=== PATIENT | female | born 1965 | race Caucasian/White ===

== ENCOUNTER → 2016-07-23 | Outpatient (CLI) | payer BC ==
[~2016-07-23] MED LIST: PRLSR20 PO
--- NOTE | 2016-07-23 15:49 | MAMMOGRAPHY REPORT ---
BILATERAL DIGITAL SCREENING MAMMOGRAM TOMOSYNTHESIS WITH CAD: 07/23/2016 CLINICAL HISTORY: Routine screening. Patient has no complaints. TECHNIQUE: Breast tomosynthesis in addition to standard 2D mammography was performed. Current study was also evaluated with a Computer Aided Detection (CAD) system. COMPARISON: Comparison is made to exams dated: 07/21/2015 mammogram, 04/20/2013 mammogram, 4 mammogram, 10/30/2012 ultrasound biopsy, 04/16/2012 mammogram, and 04/10/2011 mammogram - [facility]. BREAST COMPOSITION: The tissue of both breasts is heterogeneously dense, which may obscure small ma sses. FINDINGS: There are vascular calcifications within the lateral left breast. A stable ribbon-shaped metallic biopsy marker associated with a lobulated mass in the right upper outer posterior breast. Pathology results yielded a benign fibroadenoma. No new suspicious mass, architectural distortion o r cluster of microcalcifications is seen. IMPRESSION: ACR BI-RADS CATEGORY 1: NEGATIVE There is no mammographic evidence of malignancy. A 1 year screening mammogram is recommended. The p atient will receive written notification of the results. Approximately 10% of breast cancers are not detected with mammography. A negative mammographic repor t should not delay biopsy if a clinically suggestive mass is present. Magnolia Paul M.D. ay/:07/23/2016 15:31:46 Baggage Security Checker: Mallory OAKLEY(Briseyda)(Ilan), [facility] letter sent: Normal 1/2 BI-RADS Code: ACR BI-RADS Category 1: Negative
== END | disposition home or self-care (01) ==
LOC: C.MAMM 11:27
PROVIDERS: ATTEND Obstetrics & Gynecology
DX: Z12.31 Encounter for screening mammogram for malignant neoplasm of breast (principal)

== ENCOUNTER → 2016-12-25 | Outpatient (CLI) | payer BC ==
[2016-12-28 13:59] LABS: CHLAMYDIA TRACH RNA*** NOT DETECTED (NOT DETECTED); GC (NEIS GONORRHOEAE)RNA** NOT DETECTED (NOT DETECTED)
== END | disposition home or self-care (01) ==
LOC: C.LABSPEC 15:47
PROVIDERS: ATTEND Obstetrics & Gynecology
DX: N93.0 Postcoital and contact bleeding (principal)

== ENCOUNTER → 2016-12-25 | Outpatient (CLI) | payer BC | END | disposition home or self-care (01) | LOC: C.PAPS 09:17 | PROVIDERS: ATTEND Obstetrics & Gynecology | DX: Z01.419 Encounter for gynecological examination (general) (routine) without abnormal findings (principal) ==

== ENCOUNTER → 2017-03-11 | Outpatient (CLI) | payer BC | END | disposition home or self-care (01) | LOC: C.PATHSPEC 17:42 | PROVIDERS: ATTEND Obstetrics & Gynecology | DX: N93.9 Abnormal uterine and vaginal bleeding, unspecified (principal) ==

== ENCOUNTER → 2017-07-26 | Outpatient (CLI) | payer OTHER ==
[~2017-07-26] MED LIST changes: +BIOT1CAP8 PO; +CIPR-255 PO; +MULT-240 PO; +OMEG10007 PO; +OXYC-57 PO; +PROB1TAB16 PO; +RANI150T85 PO; +VITACAP26 PO
--- NOTE | 2017-07-26 14:37 | MAMMOGRAPHY REPORT ---
BILATERAL DIGITAL SCREENING MAMMOGRAM TOMOSYNTHESIS WITH CAD: 07/26/2017 CLINICAL HISTORY: Routine screening. TECHNIQUE: Breast tomosynthesis in addition to standard 2D mammography was performed. Current study was also evaluated with a Computer Aided Detection (CAD) system. COMPARISON: Comparison is made to exams dated: 07/23/2016 mammogram, 07/21/2015 mammogram, 07/20/2014 mammogram, 04/20/2013 mammogram, 04/16/2012 mammogram, and 04/10/2011 mammogram - [facility]. BREAST COMPOSITION: The tissue of both breasts is heterogeneously dense, which may obscure small mas ses. FINDINGS: No suspicious masses, calcifications, or areas of architectural distortion are noted in ei ther breast. There has been no significant interval change compared to prior exams. Benign-appearing 13 mm mass with an associated biopsy marker clip in the right upper outer quadrant is stable compare d to prior exams. Bilateral benign-appearing calcifications are also stable. IMPRESSION: ACR BI-RADS CATEGORY 2: BENIGN There is no mammographic evidence of malignancy. A 1 year screening mammogram is recommended. The pa tient will receive written notification of the results. Approximately 10% of breast cancers are not detected with mammography. A negative mammographic report should not delay biopsy if a clinically suggestive mass is present. Clarisa Kirk M.D. /:07/26/2017 07:40:44 Delivery Coordinator: Mallory OAKLEY(R)(M), [facility] letter sent: Normal 1/2 BI-RADS Code: ACR BI-RADS Category 2: Benign
== END | disposition home or self-care (01) ==
LOC: C.MAMM 07:12
PROVIDERS: ATTEND Student in an Organized Health Care Education/Training Program
DX: Z12.31 Encounter for screening mammogram for malignant neoplasm of breast (principal)

== ENCOUNTER → 2017-08-22 | Outpatient (CLI) | payer OTHER ==
[~2017-08-22] MED LIST changes: -BIOT1CAP8 PO; -CIPR-255 PO; -MULT-240 PO; -OMEG10007 PO; -OXYC-57 PO; -PROB1TAB16 PO; -RANI150T85 PO; -VITACAP26 PO
== END | disposition home or self-care (01) ==
LOC: C.LABSPEC 14:00
PROVIDERS: ATTEND Physician Assistant
DX: N76.0 Acute vaginitis (principal)

== ENCOUNTER 2017-12-10 01:15 | Observation (INO) | payer OTHER ==
[~2017-12-10] VITALS: Ht 167.6 cm; Wt 62.0 kg
[2017-12-10] MEDS ORDERED: MoRPHine SULFATE 2 MG/ML CARP IV STA (01:43)
[2017-12-10] MEDS ORDERED: ONDANSETRON INJ 2 MG/ML 2 ML VIAL IV STA (01:43)
[2017-12-10] MEDS ORDERED: SODIUM CHLORIDE 0.9% 1000ML 1,000 ML IV ONE (01:45)
[2017-12-10] MEDS ORDERED: GI COCKTAIL PO ONE (01:45)
[2017-12-10] MEDS ORDERED: PROB1TAB16 PO (01:47)
[2017-12-10] MEDS ORDERED: RANI150T85 PO (01:47)
[2017-12-10] MEDS ORDERED: OMEG10007 PO (01:48)
[2017-12-10] MEDS ORDERED: BIOT1CAP8 PO (01:49)
[2017-12-10] MEDS ORDERED: LIDOCAINE HCL 2% VISC SOLN 20 ML UDC ONE (01:49)
[2017-12-10] MEDS ORDERED: VITACAP26 PO (01:49)
[2017-12-10] MEDS ORDERED: ALUMINUM/MAGNESIUM SUSP 30 ML UDC ONE (01:49)
[2017-12-10] MEDS ORDERED: MoRPHine SULFATE 4 MG/ML 1 ML CARP\\VIAL ONE (01:49)
[2017-12-10] MEDS ORDERED: MULT-240 PO (01:50)
[2017-12-10 02:05] LABS: CALCIUM 9.6 mg/dl (8.5-10.1); POTASSIUM 3.9 mmol/L (3.5-5.1); TOTAL PROTEIN 8.2 gm/dl (6.4-8.2)
[2017-12-10 02:07] LABS: BASO % 1.1 %; BASO ABS # 0.09 K/uL (0-0.2); EOS % 5.7 %; EOS ABS # 0.47 K/uL (0-0.5); HEMATOCRIT 38.6 % (37-47); HEMOGLOBIN 13.3 g/dL (12.0-16.0); IG# 0.01 K/uL (0.00-0.02); LYMPH % 32.6 %; LYMPH ABS # 2.67 K/uL (1.2-3.4); MEAN CELL VOLUME 84.6 fL (80-100); MEAN CORPUSCULAR HEMOGLOBIN 29.2 pg (25-34); MEAN CORPUSCULAR HGB CONC 34.5 g/dl (32-36); MEAN PLATELET VOLUME 10.4 fL (7.4-10.4); MONO % 9.8 %; NEUT % 50.7 %; NEUT ABS # 4.16 K/uL (1.4-6.5); PLATELET COUNT 336 K/uL (130-400); RED CELL DISTRIBUTION WIDTH CV 12.9 % (11.5-14.5); RED CELL DISTRIBUTION WIDTH SD 39.8 fL (36.4-46.3)
--- NOTE | 2017-12-10 07:10 | DIAGNOSTIC IMAGING REPORT ---
ABDOMINAL ULTRASOUND, RIGHT UPPER QUADRANT HISTORY: Upper abdominal pain. COMPARISON: Abdominal series December 10, 2017 FINDINGS: Liver morphology is normal. There is no biliary ductal dilatation. The common bile duct measures 4 mm in caliber. No gallstones are identified. However, the gallbladder is mildly distended and there may be a small amount of sludge within the gallbladder. Note is made of mild gallbladder wall thickening with a small amount of pericholecystic fluid. Sonographic Jean-Baptiste sign could not be assessed for given pain medication administration. Note is made of mild right hydronephrosis. IMPRESSION: 1. Mildly distended gallbladder with possible small amount of gallbladder sludge. No gallstones. Mild gallbladder wall thickening with pericholecystic fluid. These findings raise the possibility of acute cholecystitis and a hepatobiliary scan could be obtained. 2. No biliary ductal dilatation. 3. Mild right hydronephrosis of uncertain etiology. Electronically signed by: Nikita Monge M.D. 12/10/2017 7:09 AM Dictated Date/Time: 12/10/2017 7:05 AM
--- NOTE | 2017-12-10 07:44 | DIAGNOSTIC IMAGING REPORT ---
PA CHEST RADIOGRAPH AND UPRIGHT AND SUPINE AP RADIOGRAPHS OF THE ABDOMEN CLINICAL HISTORY: Epigastric abdominal pain. COMPARISON STUDY: Chest radiograph March 01, 2006. FINDINGS: Lung volumes are normal. No pneumothorax or pleural effusion is noted. Lungs are clear. Cardiac size is normal. Mediastinal contours are unremarkable. There is no evidence for pulmonary edema. There are no free air. Bowel gas pattern is normal. A moderate amount stool is noted within the colon. IMPRESSION: 1. No free air or evidence of bowel obstruction. 2. No acute cardiopulmonary findings. Electronically signed by: Nikita Monge M.D. 12/10/2017 7:43 AM Dictated Date/Time: 12/10/2017 7:41 AM
[2017-12-10] MEDS ORDERED: CIPR-255 PO (08:33)
--- NOTE | 2017-12-10 08:40 | Surgery Consultation ---
Consultation Date of Consultation: December 10, 2017. Attending Physician: Past Medical/Surgical History Medical Problems: (1) Colic, biliary Status: Acute (2) Esophageal Reflux Status: Chronic (3) Fall Status: Acute (4) Head contusion Status: Acute (5) Lumbago Status: Chronic (6) Mild concussion Status: Acute (7) Neck pain Status: Acute (8) Work related injury Status: Acute Social History Smoking Status: Never Smoker Allergies Coded Allergies: Prednisone (Unverified Allergy, Intermediate, HEART RACING, 12/10/17) Naproxen (Verified Adverse Reaction, Unknown, loose stools, 12/10/17) Home Medications Scheduled Biotin (Biotin), Unknown Dose PO DAILY Ciprofloxacin Hcl (Cipro), 1 TAB PO BID Fish Oil (Marston-3), 1 CAP PO DAILY Multiple Vitamins W/ Minerals (Womens One Daily), 1 TAB PO DAILY Omeprazole (Prilosec), 20 MG PO DAILY Probiotic Product (Probiotic), 1 TAB PO DAILY Ranitidine (Zantac), 150 MG PO DAILY Vitamins C & E (Vitamin C), 1 CAP PO DAILY Physical Exam Date Time Temp Pulse Resp B/P (MAP) Pulse Ox O2 Delivery O2 Flow Rate FiO2 12/10/17 08:28 70 20 133/85 97 12/10/17 06:00 70 18 113/54 97 Room Air 12/10/17 04:11 36.5 75 18 118/69 100 Room Air 12/10/17 02:51 70 18 133/77 100 Room Air 12/10/17 01:19 36.7 72 18 136/85 100 Room Air Laboratory Results Last 24 Hours Test 12/10/17 01:34 12/10/17 01:35 White Blood Count 8.20 K/uL Red Blood Count 4.56 M/uL Hemoglobin 13.3 g/dL Hematocrit 38.6 % Mean Corpuscular Volume 84.6 fL Mean Corpuscular Hemoglobin 29.2 pg Mean Corpuscular Hemoglobin Concent 34.5 g/dl Platelet Count 336 K/uL Mean Platelet Volume 10.4 fL Neutrophils (%) (Auto) 50.7 % Lymphocytes (%) (Auto) 32.6 % Monocytes (%) (Auto) 9.8 % Eosinophils (%) (Auto) 5.7 % Basophils (%) (Auto) 1.1 % Neutrophils # (Auto) 4.16 K/uL Lymphocytes # (Auto) 2.67 K/uL Monocytes # (Auto) 0.80 K/uL Eosinophils # (Auto) 0.47 K/uL Basophils # (Auto) 0.09 K/uL RDW Standard Deviation 39.8 fL RDW Coefficient of Variation 12.9 % Immature Granulocyte % (Auto) 0.1 % Immature Granulocyte # (Auto) 0.01 K/uL Sodium Level 139 mmol/L Potassium Level 3.9 mmol/L Chloride Level 104 mmol/L Carbon Dioxide Level 29 mmol/L Anion Gap 6.0 mmol/L Blood Urea Nitrogen 12 mg/dl Creatinine 1.00 mg/dl Est Creatinine Clear Calc Drug Dose 63.0 ml/min Estimated GFR () 76.1 Estimated GFR (Non- 65.6 BUN/Creatinine Ratio 11.7 Random Glucose 89 mg/dl Calcium Level 9.6 mg/dl Total Bilirubin 0.6 mg/dl Aspartate Amino Transf (AST/SGOT) 16 U/L Alanine Aminotransferase (ALT/SGPT) 33 U/L Alkaline Phosphatase 65 U/L Total Protein 8.2 gm/dl Albumin 4.0 gm/dl Globulin 4.2 gm/dl Albumin/Globulin Ratio 1.0 Lipase 157 U/L Urine Color YELLOW Urine Appearance CLEAR Urine pH 5.0 Urine Specific Delano 1.017 Urine Protein NEG Urine Glucose (UA) NEG Urine Ketones TRACE Urine Occult Blood NEG Urine Nitrite NEG Urine Bilirubin NEG Urine Urobilinogen NEG Urine Leukocyte Esterase LARGE Urine WBC (Auto) 10-30 /hpf Urine RBC (Auto) 0-4 /hpf Urine Hyaline Casts (Auto) 1-5 /lpf Urine Epithelial Cells (Auto) 10-20 /lpf Urine Bacteria (Auto) 1+
[2017-12-10] MEDS ORDERED: MoRPHine SULFATE 4 MG/ML 1 ML CARP\\VIAL IV PRN ×3 (10:30)
[2017-12-10] MEDS ORDERED: ONDANSETRON INJ 2 MG/ML 2 ML VIAL IV PRN ×2 (10:30→15:30)
[2017-12-10] MEDS ORDERED: CIPROFLOXACIN / D5W 400 MG in PREMIXED IN D5W 200 ML IV SCH (10:30)
[2017-12-10] MEDS ORDERED: LORAZEPAM 2 MG/ML 1 ML VIAL IV PRN (10:30)
--- NOTE | 2017-12-10 10:34 | History and Physical ---
History & Physical Date & Time of Service: December 10, 2017 at 10:24 Chief Complaint: Pain In Stomach And On Left Side Primary Care Physician: Heidy Heck D.O. History of Present Illness Source: patient Clover is a 51-year-old female who presented to the emergency room with complaint of epigastric abdominal pain with radiation to the left upper quadrant started yesterday around 7:30 PM. And states she has had multiple similar episodes every few months in the past 2 years. She had an upper endoscopy about a year ago with biopsy which showed no findings. She does take a daily PPI. Describes pain as a sharp stabbing pain with radiation to the left upper quadrant which is more dull in nature. Denies of any preceding incidents that caused the pain including fatty greasy meals. Has limited sugar in her diet. Mostly eats fruits and vegetables and meats. Denies of any fevers , chills, nausea, vomiting, vomiting blood, chest pain, shortness of breath, difficulty breathing, changes in bowel habits, diarrhea, constipation, blood in stools, black tarry stools, difficulty urinating, dysuria, blood in the urine. Emergency room workup included labs which show no leukocytosis, LFTs completely within normal limits including total bilirubin. Right upper quadrant ultrasound showed mildly distended gallbladder with possible amount of gallbladder sludge no gallstones. Mild gallbladder wall thickening with pericholecystic fluid. These findings raise possibility of acute cholecystitis. She has received some IV make pain medication in the emergency room. On my examination she is feeling better. No nausea no vomiting. Pain on presentation was 8 out of 10 and currently about a 1 out of 10. She denies of any pain during the ultrasound examination. Past Medical/Surgical History Medical Problems: (1) Acute acalculous cholecystitis (2) Biliary colic (3) Epigastric abdominal pain (4) Esophageal Reflux (5) Fall (6) Head contusion (7) Lumbago (8) Mild concussion (9) Neck pain (10) Work related injury Surgical Problems: (1) History of discectomy Social History Smoking Status: Never Smoker Immunizations History of Influenza Vaccine: No Influenza Vaccine Date: Apr 26, 2005 History of Pneumococcal: No History of Hepatitis B Vaccine: No Allergies Coded Allergies: Prednisone (Unverified Allergy, Intermediate, HEART RACING, 12/10/17) Naproxen (Verified Adverse Reaction, Unknown, loose stools, 12/10/17) Home Medications Scheduled Biotin (Biotin), Unknown Dose PO DAILY Ciprofloxacin Hcl (Cipro), 1 TAB PO BID Fish Oil (Karthaus-3), 1 CAP PO DAILY Multiple Vitamins W/ Minerals (Womens One Daily), 1 TAB PO DAILY Omeprazole (Prilosec), 20 MG PO DAILY Probiotic Product (Probiotic), 1 TAB PO DAILY Ranitidine (Zantac), 150 MG PO DAILY Vitamins C & E (Vitamin C), 1 CAP PO DAILY Review of Systems Constitutional: No fever, No chills, No sweats Respiratory: No cough, No shortness of breath, No dyspnea at rest Cardiovascular: No chest pain Abdomen: + pain, No nausea, No vomiting, No diarrhea, No constipation, No GI bleeding Genitourinary - Female: No dysuria, No urinary frequency, No urinary urgency, No urinary incontinence, No hematuria Endocrine: No fatigue Hematologic / Lymphatic: No abnormal bleeding/bruising Integumentary: No rash Physical Exam Vital Signs Date Time Temp Pulse Resp B/P (MAP) Pulse Ox O2 Delivery O2 Flow Rate FiO2 12/10/17 08:28 70 20 133/85 97 12/10/17 06:00 70 18 113/54 97 Room Air 12/10/17 04:11 36.5 75 18 118/69 100 Room Air 12/10/17 02:51 70 18 133/77 100 Room Air 12/10/17 01:19 36.7 72 18 136/85 100 Room Air General Appearance: WD/WN, no apparent distress Head: normocephalic, atraumatic Eyes: sclerae normal ENT: hearing grossly normal Neck: trachea midline Respiratory/Chest: normal breath sounds, no respiratory distress, no accessory muscle use Cardiovascular: regular rate, rhythm, no murmur Abdomen/GI: soft, no organomegaly, no pulsatile mass, + tenderness (mild in the epigastric region, negative Jean-Baptiste's sign) Back: normal inspection Extremities/Musculoskelatal: normal inspection Neurologic/Psych: alert, normal mood/affect, oriented x 3 Skin: normal color, warm/dry, no rash Diagnostics Laboratory Results Results Past 24 Hours Test 12/10/17 01:34 12/10/17 01:35 Range/Units White Blood Count 8.20 4.8-10.8 K/uL Red Blood Count 4.56 4.2-5.4 M/uL Hemoglobin 13.3 12.0-16.0 g/dL Hematocrit 38.6 37-47 % Mean Corpuscular Volume 84.6 80-100 fL Mean Corpuscular Hemoglobin 29.2 25-34 pg Mean Corpuscular Hemoglobin Concent 34.5 32-36 g/dl Platelet Count 336 130-400 K/uL Mean Platelet Volume 10.4 7.4-10.4 fL Neutrophils (%) (Auto) 50.7 % Lymphocytes (%) (Auto) 32.6 % Monocytes (%) (Auto) 9.8 % Eosinophils (%) (Auto) 5.7 % Basophils (%) (Auto) 1.1 % Neutrophils # (Auto) 4.16 1.4-6.5 K/uL Lymphocytes # (Auto) 2.67 1.2-3.4 K/uL Monocytes # (Auto) 0.80 0.11-0.59 K/uL Eosinophils # (Auto) 0.47 0-0.5 K/uL Basophils # (Auto) 0.09 0-0.2 K/uL RDW Standard Deviation 39.8 36.4-46.3 fL RDW Coefficient of Variation 12.9 11.5-14.5 % Immature Granulocyte % (Auto) 0.1 % Immature Granulocyte # (Auto) 0.01 0.00-0.02 K/uL Sodium Level 139 136-145 mmol/L Potassium Level 3.9 3.5-5.1 mmol/L Chloride Level 104 98-107 mmol/L Carbon Dioxide Level 29 21-32 mmol/L Anion Gap 6.0 3-11 mmol/L Blood Urea Nitrogen 12 7-18 mg/dl Creatinine 1.00 0.60-1.20 mg/dl Est Creatinine Clear Calc Drug Dose 63.0 ml/min Estimated GFR () 76.1 Estimated GFR (Non- 65.6 BUN/Creatinine Ratio 11.7 10-20 Random Glucose 89 70-99 mg/dl Calcium Level 9.6 8.5-10.1 mg/dl Total Bilirubin 0.6 0.2-1 mg/dl Aspartate Amino Transf (AST/SGOT) 16 15-37 U/L Alanine Aminotransferase (ALT/SGPT) 33 12-78 U/L Alkaline Phosphatase 65 45-117 U/L Total Protein 8.2 6.4-8.2 gm/dl Albumin 4.0 3.4-5.0 gm/dl Globulin 4.2 2.5-4.0 gm/dl Albumin/Globulin Ratio 1.0 0.9-2 Lipase 157 73-393 U/L Urine Color YELLOW Urine Appearance CLEAR CLEAR Urine pH 5.0 4.5-7.5 Urine Specific Watkins 1.017 1.000-1.030 Urine Protein NEG NEG Urine Glucose (UA) NEG NEG Urine Ketones TRACE NEG Urine Occult Blood NEG NEG Urine Nitrite NEG NEG Urine Bilirubin NEG NEG Urine Urobilinogen NEG NEG Urine Leukocyte Esterase LARGE NEG Urine WBC (Auto) 10-30 0-5 /hpf Urine RBC (Auto) 0-4 0-4 /hpf Urine Hyaline Casts (Auto) 1-5 0-5 /lpf Urine Epithelial Cells (Auto) 10-20 0-5 /lpf Urine Bacteria (Auto) 1+ NEG Microbiology Results 12/10/17 Urine Culture, Received Pending Diagnostic Radiology ABDOMINAL ULTRASOUND, RIGHT UPPER QUADRANT HISTORY: Upper abdominal pain. COMPARISON: Abdominal series December 10, 2017 FINDINGS: Liver morphology is normal. There is no biliary ductal dilatation. The common bile duct measures 4 mm in caliber. No gallstones are identified. However, the gallbladder is mildly distended and there may be a small amount of sludge within the gallbladder. Note is made of mild gallbladder wall thickening with a small amount of pericholecystic fluid. Sonographic Jean-Baptiste sign could not be assessed for given pain medication administration. Note is made of mild right hydronephrosis. IMPRESSION: 1. Mildly distended gallbladder with possible small amount of gallbladder sludge. No gallstones. Mild gallbladder wall thickening with pericholecystic fluid. These findings raise the possibility of acute cholecystitis and a hepatobiliary scan could be obtained. 2. No biliary ductal dilatation. 3. Mild right hydronephrosis of uncertain etiology. Impression Assessment and Plan 51-year-old female presented to the emergency room with complaint of epigastric abdominal pain with radiation to the left upper quadrant. This in the setting of chronic similar abdominal pain that occurs every few months in the past 2 years. Negative upper endoscopy about 1 year ago. Ultrasound of the gallbladder showing distention with gallbladder sludge no stones wall thickening and pericholecystic fluid concerning for acute cholecystitis. Labs within normal limits and vital signs stable. Abdomen is soft mildly tender in the epigastric region no distention. Dx: Acute cholecystitis with biliary colic Plan: Plan to admit patient for observation and for laparoscopic cholecystectomy later today. Start patient on IV fluids, IV Cipro twice daily, IV pain medication as needed, IV Zofran as needed, and IV Ativan low dose as needed for anxiety, and SCDs for DVT prophylaxis. Patient was informed of the procedure and risks including bleeding, infection, injury to common bile duct, bile leak, injury to surrounding organs and tissues, cardiopulmonary complications, including blood clots. Patient understood and informed consent will be obtained by Dr. Horvath prior to procedure. Dr. Horvath has seen patient, agrees with above. Resuscitation Status VTE Prophylaxis Will order VTE Prophylaxis: Yes
[2017-12-10] MEDS ORDERED: IV FLUIDS COMPLETED PRN (11:30)
--- NOTE | 2017-12-10 11:57 | EMERGENCY ROOM VISIT NOTE ---
ED Visit Note Emergency Department Note Ms. Cadena'arlene care was transferred to [facility] by Vinayak Cardona PA-C at the end of the shift pending surgical evaluation and possible hepatobiliary scan. Please see Mr. Cardona's documentation for full information on her emergency department visit prior to my taking over care. In summary patient has been having ongoing right upper abdominal pain for the last few months. She has seen a political aide and her symptoms were consistent with GERD and she was started on proton pump inhibitor dose. She came to emergency department with worsening epigastric pain and left upper quadrant pain this morning. Her CBC and BMP were unremarkable. Her lipase was unremarkable. Her urinalysis was questionable with a lot of epithelial cells but she did have 1+ bacteria and white blood cells. Culture is pending. Acute abdominal series was performed and was unremarkable. A gallbladder ultrasound was performed and showed a mildly distended gallbladder with a small amount of sludge but no gallstones. Mild gallbladder wall thickening with pericholecystic fluid raising the possibility of acute cholecystitis and a hepatobiliary exam was recommended. Additionally general surgery was consulted for patient evaluation. When care was transferred to [facility] the scan and surgical consultation was pending. Review of Systems: As noted above in history of present illness. All body systems were reviewed and found to be negative as noted above. Past Medical History: As previously noted (1) Acute acalculous cholecystitis (2) Biliary colic (3) Epigastric abdominal pain (4) Esophageal Reflux (5) Lumbago Surgical Problems: (1) History of discectomy Current Medications: Medications Dose Route/Sig Max Daily Dose Days Date Category Womens One Daily (Multiple Vitamins W/ Minerals) 1 Tab Tab 1 Tab PO DAILY 12/10/17 Reported Vitamin C (Vitamins C & E) 1 Cap Cap 1 Cap PO DAILY 12/10/17 Reported Biotin Unknown Strength Cap Unknown Dose PO DAILY 12/10/17 Reported [place]-3 (Fish Oil) 1 Ea Cap 1 Cap PO DAILY 12/10/17 Reported Zantac (Ranitidine HCl) 150 Mg Tab 150 Mg PO DAILY 12/10/17 Reported Probiotic (Probiotic Product) 1 Tab Tab 1 Tab PO DAILY 12/10/17 Reported Prilosec (Omeprazole) 20 Mg Capcr 20 Mg PO DAILY 12/14/15 Reported Allergies to Medications: Naproxen, prednisone. Social History: Patient is currently employed; she feels safe in her home environment; she denies tobacco use and admits to social alcohol use. Physical Examination: Vital Signs: Date Time Temp Pulse Resp B/P (MAP) Pulse Ox O2 Delivery O2 Flow Rate FiO2 12/10/17 08:28 70 20 133/85 97 12/10/17 06:00 70 18 113/54 97 Room Air GENERAL: 51-year-old female in mild distress due to pain, nontoxic-appearing, afebrile and hemodynamically stable. NEUROLOGICAL: Awake, alert and oriented to person, place and time. Answering questions appropriately and following commands. Good hand eye coordination. SKIN: Warm, dry and pink. HEENT: Atraumatic and normocephalic. PERRLA. Sclera white and conjunctiva pink. Airway patent. Speech is normal. Trachea midline. No jugular venous distention. BACK: No tenderness over the bony spine or paraspinous musculature. No CVA tenderness. THORAX: Lungs sounds are clear to auscultation and equal bilaterally with symmetrical chest wall. HEART: Regular rate and rhythm. No gallops, rubs or murmurs are appreciated. ABDOMEN: Flat and soft with mild epigastric tenderness and mild right upper quadrant tenderness. Decreased bowel sounds in all quadrants. No guarding, rigidity or organomegaly. EXTREMITIES: Moves all extremities well on command and with purpose. All distal neurovascular statuses are intact and equal bilaterally. ED Course: Patient is assessed as noted above. Laboratory Testing: Test 12/10/17 01:34 12/10/17 01:35 Range/Units White Blood Count 8.20 4.8-10.8 K/uL Red Blood Count 4.56 4.2-5.4 M/uL Hemoglobin 13.3 12.0-16.0 g/dL Hematocrit 38.6 37-47 % Mean Corpuscular Volume 84.6 80-100 fL Mean Corpuscular Hemoglobin 29.2 25-34 pg Mean Corpuscular Hemoglobin Concent 34.5 32-36 g/dl Platelet Count 336 130-400 K/uL Mean Platelet Volume 10.4 7.4-10.4 fL Neutrophils (%) (Auto) 50.7 % Lymphocytes (%) (Auto) 32.6 % Monocytes (%) (Auto) 9.8 % Eosinophils (%) (Auto) 5.7 % Basophils (%) (Auto) 1.1 % Neutrophils # (Auto) 4.16 1.4-6.5 K/uL Lymphocytes # (Auto) 2.67 1.2-3.4 K/uL Monocytes # (Auto) 0.80 0.11-0.59 K/uL Eosinophils # (Auto) 0.47 0-0.5 K/uL Basophils # (Auto) 0.09 0-0.2 K/uL RDW Standard Deviation 39.8 36.4-46.3 fL RDW Coefficient of Variation 12.9 11.5-14.5 % Immature Granulocyte % (Auto) 0.1 % Immature Granulocyte # (Auto) 0.01 0.00-0.02 K/uL Sodium Level 139 136-145 mmol/L Potassium Level 3.9 3.5-5.1 mmol/L Chloride Level 104 98-107 mmol/L Carbon Dioxide Level 29 21-32 mmol/L Anion Gap 6.0 3-11 mmol/L Blood Urea Nitrogen 12 7-18 mg/dl Creatinine 1.00 0.60-1.20 mg/dl Est Creatinine Clear Calc Drug Dose 63.0 ml/min Estimated GFR () 76.1 Estimated GFR (Non- 65.6 BUN/Creatinine Ratio 11.7 10-20 Random Glucose 89 70-99 mg/dl Calcium Level 9.6 8.5-10.1 mg/dl Total Bilirubin 0.6 0.2-1 mg/dl Aspartate Amino Transf (AST/SGOT) 16 15-37 U/L Alanine Aminotransferase (ALT/SGPT) 33 12-78 U/L Alkaline Phosphatase 65 45-117 U/L Total Protein 8.2 6.4-8.2 gm/dl Albumin 4.0 3.4-5.0 gm/dl Globulin 4.2 2.5-4.0 gm/dl Albumin/Globulin Ratio 1.0 0.9-2 Lipase 157 73-393 U/L Urine Color YELLOW Urine Appearance CLEAR CLEAR Urine pH 5.0 4.5-7.5 Urine Specific Pearl 1.017 1.000-1.030 Urine Protein NEG NEG Urine Glucose (UA) NEG NEG Urine Ketones TRACE NEG Urine Occult Blood NEG NEG Urine Nitrite NEG NEG Urine Bilirubin NEG NEG Urine Urobilinogen NEG NEG Urine Leukocyte Esterase LARGE NEG Urine WBC (Auto) 10-30 0-5 /hpf Urine RBC (Auto) 0-4 0-4 /hpf Urine Hyaline Casts (Auto) 1-5 0-5 /lpf Urine Epithelial Cells (Auto) 10-20 0-5 /lpf Urine Bacteria (Auto) 1+ NEG Urine Culture: Pending Acute Abdominal X-Ray Series: Was read by the radiologist and shows normal appearance of the lungs including no pneumothorax, pleural effusions, normal heart silhouette and no evidence of pulmonary edema. Abdominal component shows no free air, normal bowel gas pattern and a moderate amount of stool within the colon. Gallbladder Ultrasound: Was read by the radiologist and shows mildly distended gallbladder with possible small amount of gallbladder sludge but no stones. Mild gallbladder wall thickening with pericholecystic fluid raising concerns about acute cholecystitis. No biliary duct dilatation. Mild right sided hydronephrosis of unknown etiology. Hepatobiliary scan was recommended. No additional treatment was given/prescribed by myself; please see Donna Dulce's notes. Ms. PetersonMajojm Radford PA-C, general surgery, did come to see the patient and she was offered surgery or office follow-up. Ms. Cummings reported the patient she reported the patient refused a cholecystectomy today and was going to follow-up in the surgeon's office in 5 days for reevaluation. Her discharge instructions were written and she was ready to be discharged. Just prior to her actually leaving the facility patient reconsidered and requested surgery today. Ms. Cummings was reconsulted. Orders were written for admission and surgery later today. Clinical Impression: Acute cholecystitis. Disposition and Plan: Please see Ms. Cummings's final notes and orders for admission and surgery.
[2017-12-10 11:58] VITALS: BP 133/79; PULSE 68; TEMP 36.8; O2SAT 98; Ht 167.6 cm; Wt 62.0 kg
[2017-12-10] MEDS ORDERED: DEXAMETHASONE SOD INJ 4 MG/ML VIAL ONE (13:49)
[2017-12-10] MEDS ORDERED: ONDANSETRON INJ 2 MG/ML 2 ML VIAL ONE (13:49)
[2017-12-10] MEDS ORDERED: PROPOFOL IV EMULSION 10 MG/ML 20 ML VIAL ONE (13:49)
[2017-12-10] MEDS ORDERED: LIDOCAINE HCL 2% 2 ML VIAL (20MG/ML) ONE (13:49)
[2017-12-10] MEDS ORDERED: FENTANYL CITRATE INJ 50 MCG/1 ML 2 ML VIAL ONE ×2 (13:50→16:08)
[2017-12-10] MEDS ORDERED: MIDAZOLAM HCL 1 MG/ML 2ML VIAL ONE (13:50)
[2017-12-10] MEDS: SODIUM CHLORIDE 0.9% 1000ML 1,000 ML IV SCH ×2 (14:28→23:10)
[2017-12-10] MEDS ORDERED: CIPROFLOXACIN / D5W 400 MG in PREMIXED IN D5W 200 ML IV ONE (15:00)
--- NOTE | 2017-12-10 15:15 | History & Physical Bridge Note ---
H&P Re-Evaluation Bridge Note: I have examined the patient, reviewed the History & Physical and in the interval since the performance of the History & Physical I have noted the following changes of clinical significance: No changes noted
[2017-12-10] MEDS ORDERED: ROCURONIUM BROMIDE 10 MG/ML 5 ML VIAL ONE (15:16)
[2017-12-10] MEDS ORDERED: LIDOCAINE HCL 1% 20 ML VIAL ONE (15:16)
[2017-12-10] MEDS ORDERED: BUPIVACAINE 0.5 % 5 MG/1 ML PF 10ML VIAL ONE (15:16)
[2017-12-10] MEDS ORDERED: BACITRACIN OINT 15 GM TUBE ONE (15:16)
[2017-12-10] MEDS ORDERED: CIPROFLOXACIN / D5W 400 MG IV SCH (15:20)
[2017-12-10] MEDS ORDERED: SCOPOLAMINE 1.5 MG TDSY TD ONE (15:26)
[2017-12-10] MEDS ORDERED: ATROPINE SULFATE 0.1 MG/ML 5ML SYR IV PRN (15:30)
[2017-12-10] MEDS ORDERED: SCOPOLAMINE 1.5 MG TDSY TD SCH (15:30)
[2017-12-10] MEDS ORDERED: HYDROmorphone INJ 0.5 MG/0.5 ML SYR IV PRN (15:30)
[2017-12-10] MEDS ORDERED: EpHEDrine SULFATE INJ 50 MG/ML AMP IV PRN (15:30)
[2017-12-10] MEDS ORDERED: FENTANYL CITRATE INJ 50 MCG/1 ML 2 ML VIAL IV PRN (15:30)
[2017-12-10] MEDS ORDERED: NEOSTIGMINE METHYLSULFATE 5 MG/5 ML SYR ONE (16:04)
[2017-12-10] MEDS ORDERED: GLYCOPYRROLATE INJ 0.2 MG/ML VIAL ONE (16:04)
[2017-12-10] MEDS ORDERED: EpHEDrine SULFATE INJ 50 MG/ML AMP ONE (16:30)
[2017-12-10] MEDS ORDERED: PHENYLEPHRINE 100MCG/ML 5ML SYR ONE (16:30)
--- NOTE | 2017-12-10 16:37 | [facility] Post Operative Brief Note ---
Immediate Operative Summary Operative Date December 10, 2017. Pre-Operative Diagnosis Acute cholecystitis with biliary colic Post-Operative Diagnosis Acute cholecystitis with biliary colic Procedure(s) Performed Laparoscopic Cholecystectomy Surgeon Dr. Horvath Metal Can Inspector Surgeon(s) ophthalmic surgical assistant Estimated Blood Loss 5cc Findings Consistent with Post-Op Diagnosis acute cholecystitis Specimens A. Gallbladder and contents Drains None Anesthesia Type General Complication(s) none Disposition Accompanied Pt To Recover: yes Disposition: Recovery Room / PACU
--- NOTE | 2017-12-10 17:12 | Anesthesiology Progress Note ---
Anesthesia Post Op Note Date & Time December 10, 2017 at 17:12 Vital Signs Pain Intensity: 0 Vital Signs Past 12 Hours Date Time Temp Pulse Resp B/P (MAP) Pulse Ox O2 Delivery O2 Flow Rate FiO2 12/10/17 17:10 62 18 119/67 100 Room Air 12/10/17 17:00 63 17 118/52 100 Oxymask 5 12/10/17 16:52 36.7 70 17 115/55 100 Oxymask 10 12/10/17 11:58 36.8 68 17 133/79 98 Room Air 12/10/17 11:31 72 134/79 96 12/10/17 08:28 70 20 133/85 97 12/10/17 06:00 70 18 113/54 97 Room Air Notes Mental Status: alert / awake / arousable, participated in evaluation Pt Amnestic to Procedure: Yes Nausea / Vomiting: adequately controlled, improving with treatment Pain: adequately controlled, improving with treatment Airway Patency, RR, SpO2: stable & adequate BP & HR: stable & adequate Hydration State: stable & adequate Anesthetic Complications: no major complications apparent
[2017-12-10] MEDS ORDERED: PROMETHAZINE HCL INJ 12.5 MG in SODIUM CHLORIDE 0.9% 50ML 50 ML IV ONE (17:15)
[2017-12-10 17:40] VITALS: BP 124/74; PULSE 70; TEMP 36.2; O2SAT 100; O2SAT 98
[2017-12-10] MEDS: CHECK SCOPOLAMINE PATCH PLACEMENT SCH ×2 (17:54→23:11)
[2017-12-10 18:34] VITALS: BP 115/71; PULSE 68; TEMP 36.3; O2SAT 97
--- NOTE | 2017-12-10 18:37 | OPERATIVE REPORT ---
DATE OF OPERATION: 12/10/2017 PREOPERATIVE DIAGNOSIS: Acute cholecystitis. POSTOPERATIVE DIAGNOSIS: Acute cholecystitis. PROCEDURE: Laparoscopic cholecystectomy. SURGEON: Amanda Horvath MD ANESTHESIA: General. ESTIMATED BLOOD LOSS: About 5 mL. FINDINGS: Acute cholecystitis. COMPLICATIONS: None. INDICATIONS FOR THE PROCEDURE: This is a 51-year-old female who presented to the ED with right upper quadrant pain and the patient had ultrasound diagnosis of acute cholecystitis. The patient will be required to do laparoscopic cholecystectomy, possible open, possible cholangiogram. I did talk to the patient about the benefit and risk, alternate procedure. I indicated the risks may include but not limited such as bleeding, infection, injury to common bile duct, injury to bowel, may need ERCP. The patient understands. She signed informed consent. She agreed to proceed with procedure. I answered all questions. DETAILS OF PROCEDURE: We brought the patient to the OR, put the patient in the supine position. The patient received SCD on bilateral legs to prevent DVT. Also, the patient received 400 mg Cipro IV for prophylactic antibiotic. The patient received general anesthesia without difficulty. Her abdomen was prepped and draped in routine sterile fashion. After time out, I injected the local anesthesia by using 1% lidocaine mixed with 0.5% Marcaine just above umbilicus, then made a small incision just above umbilicus, opened fascia and opened peritoneum under direct vision, put a Hellen trocar and connected to CO2 to create pneumoperitoneum. Flow rate is 86 L per minute. Pressure not more than 14 mmHg. Once we get a nice pneumoperitoneum, we put the camera in, looked around the abdomen showing normal finding on the stomach, small bowel, large bowel, liver; however, the gallbladder showed significant gallbladder wall edema, wall thickening and confirming acute cholecystitis. Then, we put another three 5 mm trocar on the right upper quadrant. Once all trocars in and we put a grasper in to hold the base of the gallbladder, put direction to the diaphragm and put another grasper to hold as a pouch over the gallbladder, put the latter to expose the triangle of Calot. The cystic duct was identified and mobilized. I put two 5 mm metal clips on the proximal cystic duct, one on the distal cystic duct, then used a scissor transection of cystic duct. Rechecked, no active bleeding, no bile leak. The cystic artery was identified and mobilized and put two 5 mm metal clip on the proximal cystic artery, around the distal cystic artery and then used a scissor transection of the cystic artery. Rechecked, no active bleeding and we used the Bovie to take down the gallbladder from the liver bed without difficulty. Then, we pulled out the gallbladder through the catch bag and then we reinserted Hellen trocar and connected to CO2 to create pneumoperitoneum. Again looked around the abdomen showing no bile leak and no active bleeding from the liver bed and then we removed all trocar under direct vision. No active bleeding from trocar sites. Pneumoperitoneum was released. Then, I closed the umbilical incision, fascial layer by using #1 Vicryl [id number] x2, closed subcutaneous layer by using 2-0 Vicryl interrupted and closed skin by using 4-0 Vicryl continuous running, closed another three 5 mm trocar site skin only by using 4-0 Vicryl. Then we put the dressing on. The patient tolerated the procedure well. All instrument, needle, and sponge count are correct x2 at the end of case and the patient transferred to recovery room in stable condition. The specimen sent to pathology. After procedure, I did talk to the patient and family member about the OR finding and procedure we did, they understand. I attest to the content of the Intraoperative Record and any orders documented therein. Any exceptions are noted below. IVA
[2017-12-10] MEDS ORDERED: NURSING VERBAL MED ORDER ONE (19:15)
[2017-12-10] MEDS ORDERED: OXYCODONE/ACETAMINOPHEN 5-325 TAB PO PRN (19:30)
[2017-12-10 19:36] VITALS: BP 116/72; PULSE 69; TEMP 36.6; O2SAT 97
[2017-12-10 20:40] VITALS: BP 114/72; PULSE 73; TEMP 36.6; O2SAT 96
[2017-12-10 23:05] VITALS: BP 105/65; PULSE 70; TEMP 36.6; O2SAT 98
--- NOTE | 2017-12-11 03:14 | EMERGENCY ROOM VISIT NOTE ---
History First contact with patient: :28 Chief Complaint: ABDOMINAL PAIN Stated Complaint: PAIN IN STOMACH AND ON LEFT SIDE Nursing Triage Summary: left upper quad abdominal pain radiating around to back 9 History of Present Illness The patient is a 51 year old female who presents to the Emergency Room with complaints of upper abdominal pain that began worsening around 3 hours ago. The patient states the discomfort is primarily epigastric with some worsening pain in the left upper quadrant. She states that she has had symptoms off and on like this for the past year, and has followed with gastroenterology with normal endoscopy. She is on omeprazole for symptoms, however this does not seem to be helping. The patient will have acute exacerbations like this every few months, and she states that she has never been seen during an acute attack. Her pain often lasts for an hour before resolving, however now it is lasting longer than previous. The patient is nauseated without vomiting. No lower abdominal discomfort. She has not had abdominal surgery in the past and considers himself otherwise usually healthy. She has not had fever or chills. No chest pain, chest tightness, or shortness of breath. She rates the discomfort in 8/10 and has not taken anything [id number] for her discomfort. Review of Systems More than 10 systems were reviewed and otherwise negative with the exception of history of present illness. Past Medical/Surgical History Medical Problems: (1) Acute acalculous cholecystitis (2) Biliary colic (3) Epigastric abdominal pain (4) Esophageal Reflux (5) Lumbago Surgical Problems: (1) History of discectomy Family History No pertinent family history Social History Smoking Status: Former Smoker Housing Status: lives with family Occupation Status: employed Current/Historical Medications Scheduled Biotin (Biotin), Unknown Dose PO DAILY Ciprofloxacin Hcl (Cipro), 1 TAB PO BID Fish Oil (Rayle-3), 1 CAP PO DAILY Multiple Vitamins W/ Minerals (Womens One Daily), 1 TAB PO DAILY Omeprazole (Prilosec), 20 MG PO DAILY Probiotic Product (Probiotic), 1 TAB PO DAILY Ranitidine (Zantac), 150 MG PO DAILY Vitamins C & E (Vitamin C), 1 CAP PO DAILY Physical Exam Vital Signs Date Time Temp Pulse Resp B/P (MAP) Pulse Ox O2 Delivery O2 Flow Rate FiO2 12/10/17 08:28 70 20 133/85 97 12/10/17 06:00 70 18 113/54 97 Room Air 5/22/18 04:11 36.5 75 18 118/69 100 Room Air 12/10/17 02:51 70 18 133/77 100 Room Air 12/10/17 01:19 36.7 72 18 136/85 100 Room Air Physical Exam VITALS: Vitals are noted on the nurse's note and reviewed by myself. Vital signs stable. GENERAL: Well-developed, well-nourished, white female, who appears mildly uncomfortable on examination. She is cooperative. HEAD: Normocephalic atraumatic. HEART: Regular rate and rhythm without murmurs gallops or rubs. LUNGS: Clear to auscultation bilaterally without wheezes, rales or rhonchi. No retractions or accessory muscle use. ABDOMEN: Positive normal bowel sounds x 4. Soft with epigastric tenderness on palpation. No lower abdominal tenderness. No CVA tenderness. MUSCULOSKELETAL: No muscle atrophy, erythema, or edema noted. Full range of motion in all extremities. No tenderness to palpation. NEURO: Patient was alert and oriented to person place and time. CN II through XII grossly intact. Medical Decision & Procedures ER Provider Diagnostic Interpretation: PA CHEST RADIOGRAPH AND UPRIGHT AND SUPINE AP RADIOGRAPHS OF THE ABDOMEN CLINICAL HISTORY: Epigastric abdominal pain. COMPARISON STUDY: Chest radiograph March 01, 2006. FINDINGS: Lung volumes are normal. No pneumothorax or pleural effusion is noted. Lungs are clear. Cardiac size is normal. Mediastinal contours are unremarkable. There is no evidence for pulmonary edema. There are no free air. Bowel gas pattern is normal. A moderate amount stool is noted within the colon. IMPRESSION: 1. No free air or evidence of bowel obstruction. 2. No acute cardiopulmonary findings ABDOMINAL ULTRASOUND, RIGHT UPPER QUADRANT HISTORY: Upper abdominal pain. COMPARISON: Abdominal series December 10, 2017 FINDINGS: Liver morphology is normal. There is no biliary ductal dilatation. The common bile duct measures 4 mm in caliber. No gallstones are identified. However, the gallbladder is mildly distended and there may be a small amount of sludge within the gallbladder. Note is made of mild gallbladder wall thickening with a small amount of pericholecystic fluid. Sonographic Jean-Baptiste sign could not be assessed for given pain medication administration. Note is made of mild right hydronephrosis. IMPRESSION: 1. Mildly distended gallbladder with possible small amount of gallbladder sludge. No gallstones. Mild gallbladder wall thickening with pericholecystic fluid. These findings raise the possibility of acute cholecystitis and a hepatobiliary scan could be obtained. 2. No biliary ductal dilatation. 3. Mild right hydronephrosis of uncertain etiology. Laboratory Results 12/10/17 01:34 Red Blood Count 4.56, Mean Corpuscular Volume 84.6, Mean Corpuscular Hemoglobin 29.2, Mean Corpuscular Hemoglobin Concent 34.5, Mean Platelet Volume 10.4, Neutrophils (%) (Auto) 50.7, Lymphocytes (%) (Auto) 32.6, Monocytes (%) (Auto) 9.8, Eosinophils (%) (Auto) 5.7, Basophils (%) (Auto) 1.1, Neutrophils # (Auto) 4.16, Lymphocytes # (Auto) 2.67, Monocytes # (Auto) 0.80, Eosinophils # (Auto) 0.47, Basophils # (Auto) 0.09 12/10/17 01:34 Test 12/10/17 01:34 12/10/17 01:35 White Blood Count 8.20 K/uL (4.8-10.8) Red Blood Count 4.56 M/uL (4.2-5.4) Hemoglobin 13.3 g/dL (12.0-16.0) Hematocrit 38.6 % (37-47) Mean Corpuscular Volume 84.6 fL (80-100) Mean Corpuscular Hemoglobin 29.2 pg (25-34) Mean Corpuscular Hemoglobin Concent 34.5 g/dl (32-36) Platelet Count 336 K/uL (130-400) Mean Platelet Volume 10.4 fL (7.4-10.4) Neutrophils (%) (Auto) 50.7 % Lymphocytes (%) (Auto) 32.6 % Monocytes (%) (Auto) 9.8 % Eosinophils (%) (Auto) 5.7 % Basophils (%) (Auto) 1.1 % Neutrophils # (Auto) 4.16 K/uL (1.4-6.5) Lymphocytes # (Auto) 2.67 K/uL (1.2-3.4) Monocytes # (Auto) 0.80 K/uL (0.11-0.59) Eosinophils # (Auto) 0.47 K/uL (0-0.5) Basophils # (Auto) 0.09 K/uL (0-0.2) RDW Standard Deviation 39.8 fL (36.4-46.3) RDW Coefficient of Variation 12.9 % (11.5-14.5) Immature Granulocyte % (Auto) 0.1 % Immature Granulocyte # (Auto) 0.01 K/uL (0.00-0.02) Anion Gap 6.0 mmol/L (3-11) Est Creatinine Clear Calc Drug Dose 63.0 ml/min Estimated GFR () 76.1 Estimated GFR (Non- 65.6 BUN/Creatinine Ratio 11.7 (10-20) Calcium Level 9.6 mg/dl (8.5-10.1) Total Bilirubin 0.6 mg/dl (0.2-1) Aspartate Amino Transf (AST/SGOT) 16 U/L (15-37) Alanine Aminotransferase (ALT/SGPT) 33 U/L (12-78) Alkaline Phosphatase 65 U/L (45-117) Total Protein 8.2 gm/dl (6.4-8.2) Albumin 4.0 gm/dl (3.4-5.0) Globulin 4.2 gm/dl (2.5-4.0) Albumin/Globulin Ratio 1.0 (0.9-2) Lipase 157 U/L (73-393) Urine Color YELLOW Urine Appearance CLEAR (CLEAR) Urine pH 5.0 (4.5-7.5) Urine Specific English 1.017 (1.000-1.030) Urine Protein NEG (NEG) Urine Glucose (UA) NEG (NEG) Urine Ketones TRACE (NEG) Urine Occult Blood NEG (NEG) Urine Nitrite NEG (NEG) Urine Bilirubin NEG (NEG) Urine Urobilinogen NEG (NEG) Urine Leukocyte Esterase LARGE (NEG) Urine WBC (Auto) 10-30 /hpf (0-5) Urine RBC (Auto) 0-4 /hpf (0-4) Urine Hyaline Casts (Auto) 1-5 /lpf (0-5) Urine Epithelial Cells (Auto) 10-20 /lpf (0-5) Urine Bacteria (Auto) 1+ (NEG) Medications Administered Medications (Trade) Dose Ordered Sig/Dustin Route Start Time Stop Time Status Last Admin Dose Admin Ondansetron HCl (Zofran Inj) 4 mg NOW STAT IV 12/10/17 01:43 12/10/17 01:45 DC 12/10/17 01:53 4 MG Miscellaneous Medication (Gi Cocktail) 24 ml NOW ONCE PO 12/10/17 01:45 12/10/17 01:46 DC 12/10/17 01:53 24 ML Sodium Chloride 1,000 ml @ 999 mls/hr Q1H1M ONCE IV 12/10/17 01:45 12/10/17 02:45 DC 12/10/17 01:53 999 MLS/HR Morphine Sulfate (MoRPHine SULFATE INJ) 4 mg STK-MED ONCE .ROUTE 12/10/17 01:49 12/10/17 01:50 DC 12/10/17 01:53 2 MG ED Course Physical exam and history were performed. Nursing notes, EMR, and Medication List were personally reviewed. Patient appears to have epigastric abdominal pain bring her to the emergency department tonight. She is repeatedly tender in this area. IV access was established and labs were obtained. Because of the location of her symptoms I did elect to perform plain films and ultrasound of the right upper quadrant. The patient was hydrated and given IV Zofran. She was offered pain medication, however she preferred not to take this. She did agree to taking a small amount of morphine, and was given 2 mg IV. The patient's blood work is as above and was reviewed. She does not have a significantly elevated white blood cell count, gross anemia, bandemia, or significant electrolyte imbalance. Lipase and transaminases are not diagnostic. Urine is without evidence of infection. Chest and abdominal plain films were reviewed by myself and radiology as showing no acute process. Initial ultrasound was read by [facility] and was suggestive of possible acalculous cholecystitis. Considering that the patient has normal labs and minimal tenderness on examination I did discuss options of care with the patient , and he agreed on performing a HIDA scan. Unfortunately a HIDA scan was not immediately available, and the patient was comfortable with waiting several hours here in the department for this test to occur around 8 AM. While awaiting appropriate staffing for the HIDA scan the ultrasound was reread by hospital radiologists and was much more suggestive of an acute cholecystitis. I did discuss the case with the on-call surgical team, who agreed to evaluate the patient here in the department. At this time their surgical evaluation is ongoing, and no decisions have been made at this point. The patient remained in stable condition until the time of shift change. I did discuss the case with Manolo Yu PA-C, who will assume care at this time. Please see Mr. Yu's dictation for further patient course, plan, and disposition. The chart was completed utilizing [employer] Speech Voice Recognition Software. Grammatical errors, random word insertions, pronoun errors, and incomplete sentences are an occasional consequence of this system due to software limitations, ambient noise, and hardware issues. Any formal questions or concerns about the content, text, or information contained within the body of this dictation should be directly addressed to the provider for clarification. . Medical Decision Differential diagnosis: Etiologies such as appendicitis, diverticulitis, PUD, biliary pathology, UTI, pancreatitis, obstruction, mesenteric ischemia, aortic pathology, infections, inflammatory bowel disease, renal colic, as well as others were entertained. Impression Primary Impression: Colic, biliary Additional Impression: Cholecystitis Departure Information Dispostion Home / Self-Care Condition GOOD Prescriptions Ciprofloxacin Hcl (CIPRO) 500 Mg Tab 1 TAB PO BID for 5 Days, #10 TAB Prov: Manolo Yu PA-C 12/10/17 Referrals Amanda Horvath MD Forms Call Back Authorization, HOME CARE DOCUMENTATION FORM, IMPORTANT VISIT INFORMATION Patient Instructions My [facility] Additional Instructions Continue your current medications as prescribed. Use 500 mg of ciprofloxacin 2 times a day for 5 days. Stay well-hydrated with increased clear fluids. Avoid a fatty diet as instructed. Follow-up with [facility] surgery next Saturday; call the office for time. Return to the ED for worsening/uncontrolled pain, fevers, uncontrolled vomiting or any new/concerning symptoms. Problem Qualifiers
[2017-12-11 03:32] VITALS: BP 117/70; PULSE 60; TEMP 36.5; O2SAT 98
[2017-12-11] MEDS ORDERED: CIPROFLOXACIN / D5W 400 MG in PREMIXED IN D5W 200 ML IV SCH (04:00)
[2017-12-11] MEDS: CHECK SCOPOLAMINE PATCH PLACEMENT SCH (08:00)
[2017-12-11 08:01] VITALS: BP 118/66; PULSE 66; TEMP 36.7; O2SAT 98
[2017-12-11 08:49] VITALS: O2SAT 98
--- NOTE | 2017-12-11 09:06 | Surgery Progress Note ---
Surgery Progress Note Date of Service December 11, 2017. Subjective Post OP Day: 1 (s/p laparoscopic cholecystectomy) + feeling well, + complaints (right shoulder pain and gas pain), + pain controlled, + diet (full liquids), No chest pain, No ambulating, No SOB, No bowel movement, No flatus, No nausea, No vomiting Objective Vital Signs: Date Time Temp Pulse Resp B/P (MAP) Pulse Ox O2 Delivery O2 Flow Rate FiO2 12/11/17 08:49 98 Room Air 12/11/17 08:01 36.7 66 14 118/66 (83) 98 Room Air 12/11/17 03:32 36.5 60 16 117/70 (86) 98 Room Air 12/10/17 23:15 Room Air 12/10/17 23:05 36.6 70 16 105/65 (78) 98 Room Air 12/10/17 20:40 36.6 73 18 114/72 (86) 96 Room Air 12/10/17 19:36 36.6 69 18 116/72 (87) 97 Room Air 12/10/17 18:34 36.3 68 14 115/71 (86) 97 Room Air 12/10/17 17:40 98 Room Air 12/10/17 17:40 36.2 70 18 124/74 (91) 100 Room Air 12/10/17 17:40 100 Room Air 12/10/17 17:30 36.5 59 18 116/69 98 Room Air 12/10/17 17:20 59 18 111/82 97 Room Air 12/10/17 17:10 62 18 119/67 100 Room Air 12/10/17 17:00 63 17 118/52 100 Oxymask 12/10/17 16:52 36.7 70 17 115/55 100 Oxymask 10 12/10/17 11:58 36.8 68 17 133/79 98 Room Air 12/10/17 11:31 72 134/79 96 General Appearance: WD/WN, no apparent distress Head: normocephalic, atraumatic Neck: trachea midline Respiratory/Chest: no respiratory distress, no accessory muscle use Abdomen: non distended, soft, no organomegaly, no pulsatile mass, + tenderness (at RUQ and at incision sites, appropriate post op) Incision(s): clean, dry, intact (dressings clean and dry, some blood present at umbilicus) Assessment & Plan POD # 1 s/p laparoscopic cholecystectomy -vitals stable - moderate post op pain and shoulder pain, controlled - no nausea or vomiting, tolerating diet - not ambulating Plan: Continue Percocet as needed for pain Advance diet as tolerated Continue Zofran prn nausea Encouraged OOB to chair and ambulation will evaluate later this afternoon, possible discharge this evening Dr. Horvath has seen patient, agrees with above
[2017-12-11] MEDS: SODIUM CHLORIDE 0.9% 1000ML 1,000 ML IV SCH (09:53)
[2017-12-11] MEDS ORDERED: OXYC-57 PO (12:35)
--- NOTE | 2017-12-11 12:41 | Discharge Instructions ---
Discharge Instructions Date of Service December 11, 2017. Admission Reason for Admission: Pain In Stomach And On Left Side Discharge Discharge Diagnosis / Problem: Acute Cholecystitis (Inflammation of Gallbladder ) Discharge Goals Goal(s): Decrease discomfort, Improve function Activity Recommendations Activity Limitations: per Instructions/Follow-up section No heavy lifting over 20 pounds for 3 weeks No strenuous activity until cleared by surgeon No submerging incisions underwater for 2 weeks (no bathing, swimming, or hot tubs) No driving while taking narcotic pain medication or until you are pain free . Instructions / Follow-Up Instructions / Follow-Up You may shower in 3 days. Sponge bath and wash hair in meantime. Try to keep dressings clean and dry. After 3 days, shower and remove outer dressings. Leave steri strips on incisions for 7 days and then remove. They may fall off on their own that is okay. Walking and light activity is encouraged to prevent blood clots from forming. You will be given narcotic pain medication (Percocet) as needed for moderate to severe pain. Take as directed. This medication may make you drowsy and can cause constipation. To combat Constipation: -Take OTC stool softener such as Colace daily while taking narcotic pain medication - Drink plenty of water daily - May take gentle laxative or prune juice if needed You may take extra strength Tylenol as needed for mild pain, be cautious of how much Tylenol you take as Percocet has Tylenol in it. Follow-up in surgical office in 1-2 weeks, please call office at [phone] to make an appointment. our office Fax number is [phone] if your work needs to send over [facility] paperwork Current Hospital Diet Patient's current hospital diet: Full Liquid Diet Discharge Diet Recommended Diet: Regular Diet Procedures Procedures Performed: Laparoscopic Cholecystectomy Pending Studies Studies pending at discharge: yes List of pending studies: Gallbladder pathology, will be reviewed at follow up visit Medical Emergencies . Who to Call and When: Medical Emergencies: If at any time you feel your situation is an emergency, please call 911 immediately. . Non-Emergent Contact Non-Emergency issues call your: Primary Care Provider, Surgeon Call Non-Emergent contact if: you have a fever, temperature is above 101, your pain is not controlled, your pain is worsening, your pain is unusual for you, wound has increased drainage, wound has increased redness, wound has increased pain . "Provider Documentation" section prepared by Majo Radford. . [place] Drug Monitoring Program Search Results: patient reviewed within database, no issues identified
[2017-12-11 13:42] VITALS: BP 118/66; PULSE 66; TEMP 36.7; O2SAT 98
== END 2017-12-11 14:26 | disposition home or self-care (01) ==
LOC: C.EDB 01:16 → C.MSW 10:23 → ENRESERV 11:02
PROVIDERS: ADMIT Surgery; ATTEND Surgery
DX: K81.1 Chronic cholecystitis (principal); K21.9 Gastro-esophageal reflux disease without esophagitis; Z87.891 Personal history of nicotine dependence; Z79.899 Other long term (current) drug therapy; Z88.8 Allergy status to other drugs, medicaments and biological substances

== ENCOUNTER → 2018-02-25 | Outpatient (CLI) | payer OTHER ==
[~2018-02-25] MED LIST changes: +BIOT1CAP8 PO; +MULT-240 PO; +OMEG10007 PO; +OXYC-57 PO; +PROB1TAB16 PO; +RANI150T85 PO; +VITACAP26 PO
== END | disposition home or self-care (01) ==
LOC: C.PAPS 17:34
PROVIDERS: ATTEND Obstetrics & Gynecology
DX: Z12.4 Encounter for screening for malignant neoplasm of cervix (principal); Z11.51 Encounter for screening for human papillomavirus (HPV)